=== PATIENT | male | born 1990 | race Caucasian/White ===

== ENCOUNTER 2019-10-26 15:42 | Emergency (ER) | payer OTHER, SELFPAY ==
--- NOTE | 2019-10-26 15:54 | ED.PSYCH ---
HPI - Psych General Chief Complaint: Psychiatric Symptoms Stated Complaint: anxiety, suicidal thought Time Seen by Provider: 10/26/19 15:49 Source: patient Mode of arrival: ambulatory Limitations: no limitations History of Present Illness HPI Narrative: The pt is a 29 y/o male who presents to the ED c/o anxiety onset unknown. Pt states that he has a PMHx of anxiety, and that he takes Wellbutrin. Pt notes that he also has been taking herbal supplements. He states that the last week has made his anxiety worse due to circumstances, and notes that he had difficulty with concentration and speaking yesterday due to these circumstances. Pt reports resolved suicidal ideation and sore throat. MD complaint: other (Anxiety) Onset (ago): unknown Duration: getting worse (Over the past week) History of same: Yes Context: significant life stressor Associated psychiatric symptoms: suicidal ideation (Resolved) Associated symptoms: other (Sore throat, difficulty with concentration (Resolved), difficulty with speaking (Resolved)) Related Data Home Medications Medication Instructions Recorded Confirmed Klonopin 10/26/19 Risperdal 10/26/19 Wellbutrin XL 10/26/19 Allergies Allergy/AdvReac Type Severity Reaction Status Date / Time No Known Allergies Allergy Verified 10/26/19 16:23 Review of Systems Review of Systems: All systems reviewed & are unremarkable except as noted in HPI and below ENT: Reports sore throat Neurologic: Reports other (difficulty with concentration(Resolved),difficulty with speaking (Resolved)) Psychiatric: Psychiatric: Reports anxiety and Reports suicidal ideation (Resolved) PMFSH Past Medical History Medical History (Updated 10/26/19 @ 22:51 by Guillaume Patel DO) Anxiety Surgical History Surgical History (Updated 10/26/19 @ 16:13 by Luca Price) Surgical history unknown Social History Social History (Updated 10/26/19 @ 16:13 by Luca Price) Smoking status: Unknown if ever smoked Comments PCP: Dr. Stacy Exam Narrative: Exam Narrative: APPEARANCE: No acute distress, nontoxic, resting in bed EYES: EOMI HEENT: Normocephalic, atraumatic, OMM RESPIRATORY: No respiratory distress Clear to auscultation bilaterally with no rhonchi wheezing or rales. CARDIOVASCULAR: Regular rate and rhythm without murmurs rubs or gallops. ABDOMINAL: Soft, nontender, nondistended, no rebound or guarding MUSCULOSKELETAl: Moves all extremities. No clubbing, cyanosis or edema. NEURO: Awake and alert. Following commands, speech normal, no focal deficits SKIN:: Warm, dry. No rashes lesions or abrasions PSYCHIATRIC: Positive suicidal ideation, denies homicidal ideation Course Course Emergency Course: Patient is medically cleared for psychiatric placement Patient evaluated by [facility] crisis rest room [facility]. [place] to need inpatient placement at this time Patient accepted by Dr. Patel at [facility] Vital Signs Vital signs: Vital Signs Temperature 98.7 F 10/26/19 16:00 Pulse Rate 93 10/26/19 16:00 Respiratory Rate 16 10/26/19 16:00 Blood Pressure 137/85 10/26/19 16:00 Pulse Oximetry 100 10/26/19 16:00 Temperature 98.7 F 10/26/19 16:00 Pulse Rate 79 10/26/19 19:38 Respiratory Rate 16 10/26/19 19:38 Blood Pressure 106/68 10/26/19 19:38 Pulse Oximetry 100 10/26/19 19:38 MDM - Psych Lab Data Result diagrams: 10/26/19 16:11 10/26/19 16:11 Labs: Lab Results 10/26/19 10/26/19 10/26/19 Range/Units 16:11 16:11 16:11 WBC 12.5 H (4.5-10.0) K/mm3 RBC 5.10 (4.6-6.20) M/mm3 Hgb 16.7 (14.0-18.0) g/dL Hct 47.5 (42.0-52.0) % MCV 93.1 (80-100) fl MCH 32.7 (26-34) pg MCHC 35.2 (32-36) g/dl RDW 11.4 L (11.5-14.5) % Plt Count 233 (150-375) k/mm3 MPV 12.4 H (7.4-10.4) fl Immature Gran % (Auto) 0.2 (0-0.5) % Neut % (Auto) 79.6 H (45.5-73.1) % Lymph % (Auto) 10.2 L
[2019-10-26 16:00] VITALS: BP 137/85; PULSE 93; RESP 16; TEMP 37.1; O2SAT 100
[2019-10-26 16:23] LABS: Basophils Percent Auto 0.3 % (0.2-1.2); Eosinophils Absolute Auto 0.3 K/mm3 (0-0.3); Eosinophils Percent Auto 2.2 % (0-4.4); Hematocrit 47.5 % (42.0-52.0); Hemoglobin 16.7 g/dL (14.0-18.0); Immature Granulocyte Absolute 0.03 K/mm3 (0.00-0.031); Immature Granulocyte Percent A 0.2 % (0-0.5); Lymphocytes Absolute Auto 1.28 K/mm3 (0.9-3.2); Lymphocytes Percent Auto 10.2 % (18.3-44.2); Mean Corpuscular HGB Conc 35.2 g/dl (32-36); Mean Corpuscular Hemoglobin 32.7 pg (26-34); Mean Corpuscular Volume 93.1 fl (80-100); Mean Platelet Volume 12.4 fl (7.4-10.4); Monocytes Absolute Auto 0.9 K/mm3 (0.1-0.6); Monocytes Percent Auto 7.5 % (2.6-8.5); Neutrophils Percent Auto 79.6 % (45.5-73.1); Platelet Count Result 233 k/mm3 (150-375); Red Cell Distribution Width 11.4 % (11.5-14.5); White Blood Count 12.5 K/mm3 (4.5-10.0)
[2019-10-26 16:25] LABS: Add Urine Microscopic? NO; Appearance Urine Clear (Clear); Bilirubin Urine Negative (Negative); Blood Urine Negative (Negative); Color Urine Yellow (Yellow); Glucose Urine UA Negative (Negative); Ketones Urine Negative (Negative); Leukocyte Esterase Ur Negative LEU/UL (Negative); Nitrate Urine Negative (Negative); Protein Urine Negative (Negative); Specific Grav Ur 1.011 (1.001-1.035); Urobilinogen Urine Negative mg/dL (<2.0)
[2019-10-26 16:36] LABS: Ethanol < 10 mg/dL (<10)
[2019-10-26 16:37] LABS: Alanine Aminotransferase 19 U/L (4-50); Albumin Level 5.2 g/dL (3.5-5.1); Alkaline Phosphatase 70 U/L (38-126); Aspartate Amino Transferase 22 U/L (17-59); Bilirubin,Total 1.6 mg/dL (0.2-1.3); Blood Urea Nitrogen 8 mg/dL (9-20); Calcium 9.5 mg/dL (8.4-10.2); Carbon Dioxide 29 mmol/L (22-30); Chloride 98 mmol/L (98-107); Estimated CRCL calculation 105 ml/min; Estimated Glomerular Filt Rate > 60; Glucose 99 mg/dL (75-110); Potassium 3.9 mmol/L (3.4-5.0); Sodium 136 mmol/L (137-145)
[2019-10-26 16:38] LABS: Amphetamine Screen Urine Negative (Negative); Barbiturate Screen Urine Negative (Negative); Benzodiazepines Screen Urine Negative (Negative); Cannabinoid Screen Urine Negative (Negative); Cocaine Screen Urine Negative (Negative); Methadone Screen Urine Negative (Negative); Opiate Screen Urine Negative (Negative); Phencyclidine Screen Urine Negative (Negative)
[2019-10-26] MEDS: LORAZEPAM 0.5 MG TABLET PO (19:27)
[2019-10-26 19:38] VITALS: BP 106/68; PULSE 79; RESP 16; O2SAT 100
--- NOTE | 2019-10-26 20:56 | PC.NURSE ---
Mari from [facility] called back, stated they do not have any open beds currently but they may have discharges in the morning.
--- NOTE | 2019-10-26 22:19 | PC.NURSE ---
Apple from [facility] called, stated she needs voluntary paperwork faxed to [phone].
--- NOTE | 2019-10-26 22:46 | PC.NURSE ---
Apple from [facility] called, stated Dr Patle accepts the patient. States she will call back after they have a room number.
--- NOTE | 2019-10-27 00:28 | PC.NURSE ---
Addendum entered by Dayana Jay 10/27/19 04:09: Updated ETA....[id number] Original Note: Called Linda to transport to [facility]...ETA [id number]
[2019-10-27 00:33] VITALS: BP 106/54; PULSE 66; RESP 14; O2SAT 100
--- NOTE | 2019-10-27 00:33 | PC.NURSE ---
Stephanie from [facility] called at 0015 to get report on patient, patient will be going to [id number]. Patient aox4, consenting to admission and transport. Sitter at bedside, patient resting. Transport has ETA of 4am.
--- NOTE | 2019-10-27 01:39 | PC.NURSE ---
Patient requesting additional dose of 0.5mg Ativan. Dr Vazquez aware of request, gave verbal order to give medication.
[2019-10-27] MEDS: LORAZEPAM 0.5 MG TABLET PO (01:42)
--- NOTE | 2019-10-27 01:42 | PC.NURSE ---
Patient given Ativan per request, sitter at bedside. Denies any other requests at this time.
[2019-10-27 06:52] VITALS: BP 114/59; PULSE 72; RESP 18; O2SAT 97
== END 2019-10-27 06:55 | disposition short-term general hospital (02) ==
PROVIDERS: Emergency Provider Emergency Medicine; PCP Family Medicine
DX: R45.851 Suicidal ideations (principal)
CPT/HCPCS: 36415; 80053; 80307; 81003; 84443; 85025; 99285; A9270